=== PATIENT | female | born 1955 | race Caucasian/White ===

== ENCOUNTER 2017-06-02 10:04 | Outpatient (CLI) | payer OTHER ==
--- NOTE | 2017-06-02 10:42 | RAD ---
TWO VIEWS OF THE CHEST: DATE: 06/02/17. COMPARISON: 11/20/14. HISTORY: Short of breath. FINDINGS: There is increased linear interstitial density with pulmonary hyperinflation, stable. No pneumothora x or pleural fluid. No focal consolidation or alveolar edema. Cervical spine hardware is present an d grossly unchanged. IMPRESSION: No acute findings. POS: [facility]
== END 2017-06-02 10:05 | disposition home or self-care (01) ==
LOC: RAD 10:04
PROVIDERS: ATTEND Internal Medicine Critical Care Medicine
DX: R06.00 Dyspnea, unspecified (principal)
CPT/HCPCS: 71046

== ENCOUNTER 2017-07-30 08:36 | Outpatient (CLI) | payer OTHER | END 2017-07-30 08:37 | disposition home or self-care (01) | LOC: BICMAMMO 08:36 | PROVIDERS: ATTEND Internal Medicine | DX: Z12.31 Encounter for screening mammogram for malignant neoplasm of breast (principal); Z13.820 Encounter for screening for osteoporosis | CPT/HCPCS: 77063; 77067; 77080 ==

== ENCOUNTER 2017-09-03 11:30 | Outpatient (CLI) | payer OTHER ==
--- NOTE | 2017-09-03 13:23 | RAD ---
CHEST 2 VIEWS: Date: 09/03/17 HISTORY: Dyspnea. COMPARISON: 08/11/16. FINDINGS: Normal cardiac silhouette. Pulmonary vessels and hilum are normal. Costophrenic angles are clear. Chr onic changes, without consolidation or mass, Mild hyperinflation. No pneumothorax or osseous abnormal ities. IMPRESSION: No acute cardiopulmonary process. POS: [facility]
== END 2017-09-03 11:31 | disposition home or self-care (01) ==
LOC: RAD 11:30
PROVIDERS: ATTEND Internal Medicine Critical Care Medicine
DX: R06.00 Dyspnea, unspecified (principal)
CPT/HCPCS: 71046

== ENCOUNTER 2017-10-06 09:35 | Outpatient (CLI) | payer OTHER ==
--- NOTE | 2017-10-06 11:10 | RAD ---
2 VIEW CHEST: Date: 10/06/17 COMPARISON: 09/03/17. CLINICAL HISTORY: Dyspnea. FINDINGS: Lungs are clear of consolidation. No effusion or pneumothorax. The chest is otherwise similar in appe arance. IMPRESSION: Stable exam, without lobar consolidation. POS: [facility]
== END 2017-10-06 09:36 | disposition home or self-care (01) ==
LOC: RAD 09:35
PROVIDERS: ATTEND Internal Medicine Critical Care Medicine
DX: R06.00 Dyspnea, unspecified (principal)
CPT/HCPCS: 71046

== ENCOUNTER 2017-10-16 13:33 | Emergency (ER) | payer OTHER ==
--- NOTE | 2017-10-16 14:21 | RAD ---
RIGHT HIP 2 VIEWS: History Fall. Right hip pain. FINDINGS/IMPRESSION: No acute fracture or dislocation is seen. POS: [facility]
--- NOTE | 2017-10-16 14:24 | RAD ---
AP PELVIS: HISTORY: Fall with pelvic and right hip pain. FINDINGS: Bones appear slightly demineralized. Pelvic ring appears intact without evidence of fracture. SI nikhil ints are symmetric. No diastasis of the symphysis. There are some mild arthritic changes of the hip s. IMPRESSION: No evidence of fracture. POS: [facility]
--- NOTE | 2017-10-16 14:26 | CT ---
HEAD CT WITHOUT CONTRAST: HISTORY: Status post fall today. Headache. COMPARISON: None. TECHNIQUE: A noncontrast head CT is performed from the skull base to the skull vertex. FINDINGS: No parenchymal hemorrhage. No extraaxial hematoma. No midline shift. Basilar cisterns are patent. Age-appropriate atrophy. Cortical garcia-white matter differentiation is preserved. The ventricles and sulci are patent and symmetric. Calvarium is intact. Adequate aeration of the sinuses and mastoid air cells. IMPRESSION: No intracranial posttraumatic sequelae. POS: [facility]
--- NOTE | 2017-10-16 14:31 | CT ---
CT CERVICAL SPINE WITHOUT CONTRAST: HISTORY: Headache. Status post fall. COMPARISON: None. TECHNIQUE: CT cervical spine is performed without contrast. Reformatted images are submitted for interpretation . FINDINGS: Soft tissue neck structures are unremarkable. There is no prevertebral soft tissue swelling. No sig nificant central canal stenosis. No significant foraminal narrowing. Upper mediastinum and lung api zeina are unremarkable. No craniocervical dissociation. Lateral masses of C1 and C2 articulate appropriately. Intact odonto id process. There is appropriate alignment of the facets. Straightening of normal cervical lordosis may be due to patient position, muscle spasm, or cervical c ollar. The findings may also be due to fusion changes. Cervical spine vertebral body height is main tained. There is no fracture. The anterior fusion plate with transvertebral body screws is noted at C5, C6, and C7. There is a pro sthesis at C5-C6 and C6-C7. IMPRESSION: 1. Cervical fusion changes as above. Straightening of normal cervical lordosis as detailed above. If there is concern for ligamentous injury, consider MRI. 2. No cervical spine fracture. POS: [facility]
== END 2017-10-16 15:06 | disposition home or self-care (01) ==
LOC: ERS 13:33
DX: S70.01XA Contusion of right hip, initial encounter (principal); H54.7 Unspecified visual loss; K21.9 Gastro-esophageal reflux disease without esophagitis; F17.210 Nicotine dependence, cigarettes, uncomplicated; Z79.899 Other long term (current) drug therapy; W19.XXXA Unspecified fall, initial encounter
CPT/HCPCS: 70450; 72125; 72170